=== PATIENT | female | born 1950 | race Caucasian/White ===

== ENCOUNTER → 2016-06-27 | Outpatient (CLI) | payer MEDICARE, BC | LOC: LAB.O 09:37 | PROVIDERS: ATTEND Internal Medicine Nephrology | DX: N17.0 Acute kidney failure with tubular necrosis (principal) ==

== ENCOUNTER 2016-07-12 20:25 | Emergency (ER) | payer MEDICARE, BC ==
[~2016-07-12 20:25] MED LIST: ATROPINE 1 MG/10 ML SYG IV ONE; EPINEPHrine INJ 0.1 MG/ML 10 ML SYG ONE; NALOXONE HCL INJ 0.4 MG/ML VIAL ONE; NOREPINEPHRINE BITARTRATE 4 MG in DEXTROSE 5% 250ML 250 ML IVPB ONE; SODIUM BICARBONATE SYRINGE 50 MEQ/50 ML SYG IV ONE; SODIUM CHLORIDE 0.9% (FLUSH) 10 ML SYG ONE; SODIUM CHLORIDE 0.9% 1000ML 1,000 ML IVS ONE
--- NOTE | 2016-07-13 11:40 | RAD ---
EXAM DESCRIPTION: XR CHEST 1 VIEW CLINICAL HISTORY: UNRESPONSIVE COMPARISON: February 07, 2010 FINDINGS: Artifact from patient's backboard is noted. Accounting for AP supine technique, the heart appears slightly enlarged. Mediastinal contours are otherwise unremarkable. There is some ill-defined alveolar opacity in the right upper lung. Bilateral perihilar interstitial prominence is noted. No pleural effusion is identified. Postoperative changes are noted in the lumbar spine. No fracture or pneumothorax is seen. IMPRESSION: CHF with airspace consolidation in the right upper lobe probably representing edema. Bilateral pneumonia should also be considered. Electronically signed by: Etienne Arciniega DO 07/13/2016 11:38
== END 2016-07-12 20:58 | disposition expired ==
LOC: ER 20:25
DX: I46.9 Cardiac arrest, cause unspecified (principal); Z88.8 Allergy status to other drugs, medicaments and biological substances
CPT/HCPCS: 36415; 71010; 82550; 82553; 84484; 92950; A4216; J2310; J7030; J7060